=== PATIENT | female | born 1985 | race Caucasian/White ===

== ENCOUNTER 2017-05-25 14:54 | Emergency (ER) | payer OTHER ==
[~2017-05-25] VITALS: Ht 162.5 cm; Wt 81.6 kg
[~2017-05-25 14:54] MED LIST: CLARITIN10 MG PO; COMPAZINE10 MG PO; DAYPRO600 M1 PO; FLEXERIL10 MG PO; HYDROCODONE BIT1 T11 PO; KEFLEX500 MG PO; MOTRIN600 MG PO; NKHM; PREDNICOT20 MG PO; TOBRADEX 0.1%-0.5 ML OPH; TRIMOX500 MG PO; ZITHROMAX Z PA250 MG PO
[2017-05-25] MEDS ORDERED: Motrin,Rufen800 MG PO (16:56)
[2017-05-25] MEDS ORDERED: CYCLOBENZAPRINE5 M3 PO (16:56)
== END 2017-05-25 22:03 | disposition home or self-care (01) ==
LOC: ED 14:54
DX: S70.02XA Contusion of left hip, initial encounter (principal); M25.552 Pain in left hip; Z91.030 Bee allergy status; Z88.8 Allergy status to other drugs, medicaments and biological substances; W22.8XXA Striking against or struck by other objects, initial encounter; Y93.89 Activity, other specified; Y92.89 Other specified places as the place of occurrence of the external cause; Y99.8 Other external cause status

== ENCOUNTER 2017-06-30 23:23 | Emergency (ER) | payer OTHER ==
[~2017-06-30] VITALS: Ht 165.1 cm; Wt 83.9 kg
[~2017-06-30 23:23] MED LIST changes: +CYCLOBENZAPRINE5 M3 PO; +Motrin,Rufen800 MG PO
[2017-07-01 00:57] LABS: BILIRUBIN NEGATIVE (NEGATIVE); BLOOD NEGATIVE (NEGATIVE); CLARITY CLEAR (CLEAR); COLOR YELLOW (YELLOW); GLUCOSE NEGATIVE (NEGATIVE); KETONE NEGATIVE (NEGATIVE); LEUKO ESTERASE NEGATIVE (NEGATIVE); NITRITE NEGATIVE (NEGATIVE); SPECIFIC GRAVITY <= 1.005 (1.005-1.030); UROBILINOGEN 0.2 E.U./dl (0.2-1.0)
[2017-07-01 01:11] LABS: BASO # 0.1 10*3/uL (0.0-0.1); BASO % 0.5 % (0.0-1.0); EOS # 0.2 10*3/uL (0.0-0.4); HEMOGLOBIN 13.6 g/dl (12.0-16.0); LYMPH % 35.6 % (27.0-41.0); MEAN CELL VOLUME 101.7 fl (81.0-99.0); MEAN CORPUSCULAR HGB 33.7 pg (27.0-31.0); MEAN CORPUSCULAR HGB CONC 33.2 g/dl (33.0-37.0); MEAN PLATELET VOLUME 12.6 fl (9.6-12.3); MONO # 0.7 10*3/uL (0.1-1.0); MONO % 5.9 % (3.0-9.0); NEUT # 6.3 10*3/uL (2.3-7.9); NEUT % 55.4 % (47.0-73.0); PLATELET COUNT AUTOMATED 255 10*3/uL (130-400); RED BLOOD COUNT 4.03 10*6/uL (4.10-5.10); RED CELL DISTRI WIDTH 12.7 % (0-14.5); WHITE BLOOD COUNT 11.3 10*3/uL (4.8-10.8)
[2017-07-01 01:15] LABS: EPITHELIAL CELLS 0-5; WBC 0-2 wbc/hpf (0-5)
[2017-07-01 01:26] LABS: ALKALINE PHOSPHATASE 110 U/L (45-117); BUN 12 mg/dl (7-24); CHLORIDE 104 mmol/L (98-107); CREATININE 0.83 mg/dL (0.55-1.02); POTASSIUM 3.4 mmol/L (3.5-5.1); SGOT/AST 37 IU/L (3-35); SGPT/ALT 25 U/L (12-78); SODIUM 140 mmol/L (136-145); TOTAL PROTEIN 7.9 gm/dL (6.4-8.2)
[2017-07-01 01:28] LABS: BETA-HCG, QUANT < 1.0 mIU/mL (1-3)
== END 2017-07-01 04:30 | disposition short-term general hospital (02) ==
LOC: ED 23:23
PROVIDERS: Nurse Practitioner Family
DX: S72.092A Other fracture of head and neck of left femur, initial encounter for closed fracture (principal); F10.10 Alcohol abuse, uncomplicated; Z88.8 Allergy status to other drugs, medicaments and biological substances; Z91.030 Bee allergy status; W01.198A Fall on same level from slipping, tripping and stumbling with subsequent striking against other object, initial encounter; Y93.02 Activity, running; Y92.89 Other specified places as the place of occurrence of the external cause; Y99.8 Other external cause status

== ENCOUNTER 2018-11-20 02:41 | Emergency (ER) | payer OTHER ==
[~2018-11-20] VITALS: Ht 162.5 cm; Wt 87.5 kg
[2018-11-20] MEDS ORDERED: PREDNISONE50 MG PO (02:56)
== END 2018-11-20 04:50 | disposition home or self-care (01) ==
LOC: ED 02:41
DX: T78.49XA Other allergy, initial encounter (principal); L50.9 Urticaria, unspecified; Z91.030 Bee allergy status; Z88.8 Allergy status to other drugs, medicaments and biological substances; X58.XXXA Exposure to other specified factors, initial encounter